=== PATIENT | female | born 1985 | race Caucasian/White ===

== ENCOUNTER 2017-04-02 12:03 | Emergency (ER) | payer OTHER ==
[2017-04-02 13:19] VITALS: BP 117/74
--- NOTE | 2017-04-02 13:19 | UC ---
[facility] HPI - HPI Summary HPI Summary: 31 y/o female presents to the urgent care c/o a infected molar in her LF upper jaw that has become very painful with pus for the past 2 days. Pain is 5/10 today. But yesterday it was worse. she has been using OTC medication that numbs her molars. Pt states she was at the Dentist 2 months ago , but she had to stopped treatment since her insurance didn't cover for it. Pt denies fever, SOB , chest pian, PINEDA, trismus, N/V/D, abdominal pain. - History of Current Complaint Hx Obtained From: Patient Hx Last Menstrual Period: 02/17/16 ?: No Onset/Duration: Gradual Onset, Lasting Days, Still Present, Worse Since - 2 days Severity: Moderate Pain Intensity: 5 Pain Scale Used: 0-10 Numeric Aggravating Factor(s): Cold, Chewing Alleviating Factor(s): OTC Meds <Fatou Sheets - Last Filed: 04/03/17 22:39> <Shawnee Echeverria - Last Filed: 04/05/17 20:24> - History of Current Complaint Stated Complaint: DENTAL Time Seen by Provider: 04/02/17 13:01 - Allergies/Home Medications Allergies/Adverse Reactions: Allergies Allergy/AdvReac Type Severity Reaction Status Date / Time No Known Allergies Allergy Verified 04/02/17 13:19 PMH/Surg Hx/FS Hx/Imm Hx Previously Healthy: Yes - Pt denies PMHX - Surgical History Surgical History: Yes Surgery Procedure, Year, and Place: T&A, - Family History Known Family History: Positive: Hypertension, Diabetes - Social History Occupation: Employed Full-time Lives: With Family Alcohol Use: None Substance Use Type: Heroin, Prescribed, Other Substance Use Comment - Amount & Last Used: suboxone Smoking Status (MU): Heavy Every Day Tobacco Smoker Type: Cigarettes Amount Used/How Often: 1 PPD Length of Time of Smoking/Using Tobacco: 12 Years Have You Smoked in the Last Year: Yes <Fatou Sheets - Last Filed: 04/03/17 22:39> Review of Systems Constitutional: Negative Skin: Negative Eyes: Negative ENT: Other - Dental pain specially on the LF upper jaw Respiratory: Negative Cardiovascular: Negative Gastrointestinal: Negative Genitourinary: Negative Motor: Negative Neurovascular: Negative Musculoskeletal: Negative Neurological: Negative Psychological: Negative Is Patient Immunocompromised?: No All Other Systems Reviewed And Are Negative: Yes <Fatou Sheets - Last Filed: 04/03/17 22:39> Physical Exam Triage Information Reviewed: Yes Appearance: Well-Appearing, No Pain Distress, Well-Nourished Vital Signs Reviewed: Yes Eye Exam: Normal Eyes: Positive: Conjunctiva Clear - PERRLA, EOMI ENT Exam: Normal ENT: Positive: Normal ENT inspection, Hearing grossly normal, Pharynx normal, TMs normal. Negative: Pharyngeal erythema, Tonsillar swelling, Tonsillar exudate, Trismus, Muffled/hoarse voice Dental: Positive: Percussion Tenderness @, Gross Decay/Caries @ - molars 17,18, 14,15,16, 32,33 with gross decay fractures and tender to percusion, sorrounding cellulitis with yellowish discahrge at LF upper jaw molars 14,15., Dental Fracture @, Cervical Lymphadenopathy - B/L tenderness and enlarged Neck: Positive: Supple Respiratory Exam: Normal Respiratory: Positive: Chest non-tender, Lungs clear, Normal breath sounds, No respiratory distress Cardiovascular Exam: Normal Cardiovascular: Positive: RRR, No Murmur, Pulses Normal, Brisk Capillary Refill Abdominal Exam: Normal Abdomen Description: Positive: Nontender, No Organomegaly, Soft. Negative: CVA Tenderness (R), CVA Tenderness (L) Bowel Sounds: Positive: Present Musculoskeletal Exam: Normal Musculoskeletal: Positive: Strength Intact, ROM Intact, No Edema Neurological Exam: Normal Neurological: Positive: Alert Psychological Exam: Normal Skin Exam: Normal <Fatou Sheets - Last Filed: 04/03/17 22:39> Vital Signs: Initial Vital Signs Temp 99.1 F 04/02/17 13:12 Pulse 79 04/02/17 13:12 Resp 18 04/02/17 13:12 BP 117/74 04/02/17 13:12 <Shawnee Echeverria - Last Filed: 04/05/17 20:24> Dental Complaint Course/Dx - Course Course Of Treatment: 31 y/o female presents to the urgent care c/o a infected molar in her LF upper jaw that has become very painful with pus for the past 2 days. Pain is 5/10 today. But yesterday it was worse. she has been using OTC medication that numbs her molars. Pt states she was at the Dentist 2 months ago , but she had to stopped treatment since her insurance didn't cover for it. Pt denies fever, SOB, chest pian, PINEDA, trismus, N/V/D, abdominal pain.Hx obtained. On examiantion Pt with molars 17,18, 14,15,16, 32,33 with gross decay, fractured and tender to percusion, sorrounding cellulitis with yellowish discharge at LF upper jaw molars 14,15. Pt Rx Amoxicillin PO advised to take a loading dose of 1g today and then 500mg PO q8hrs. Also RX Naproxen PO to allevaite pain. Pt given a list of multiple Dentist near the area. Strongly advised to f/u with the Dentist as soon as possible. Pt understood and agreed with D/C instructions and left the clinic ambulating. - Differential Dx/Diagnosis Differential Diagnosis/Dx: Dental Abscess, Dental Caries, Peridontic Disease, Peritonsillar Abcess, Pharyngitis, Tonsillitis Provider Diagnoses: 1- Dental cellulitis. 2- Mutiple molar with gross decay and fractured <Fatou Sheets - Last Filed: 04/03/17 22:39> Discharge <Fatou Sheets - Last Filed: 04/03/17 22:39> <Shawnee Echeverria - Last Filed: 04/05/17 20:24> - Discharge Plan Condition: Stable Disposition: HOME Prescriptions: Amoxicillin PO (*) [Amoxicillin 500 MG CAP*] 500 mg PO TID #30 cap Naproxen TAB* [Naprosyn 250 mg TAB*] 500 mg PO Q8H PRN #30 tab PRN Reason: Pain Patient Education Materials: Dental Abscess (ED) Referrals: Non Staff,Doctor [Medical Doctor] - [facility] [Outside] Additional Instructions: 1-Please take full course of antibiotic to avoid resistance. 2- Take Naproxen as instructed after meals to alleviate pain and swelling. 3- F/u with your Dentist as soon as possible for further treatment or choose a dentist from the list provided 4- If symptoms do not improve or worsen please return to the urgent care or f/u with your PCP for further evaluation and treatment Attestation Statement User Type: Provider - I was available for consult. This patient was seen by the [facility]. The patient was not presented to, seen by, or examined by me. -Vivi <Shawnee Echeverria - Last Filed: 04/05/17 20:24>
== END 2017-04-02 13:27 | disposition home or self-care (01) ==
LOC: UCCORT 12:03
DX: K12.2 Cellulitis and abscess of mouth (principal); K02.9 Dental caries, unspecified; K03.81 Cracked tooth; F17.210 Nicotine dependence, cigarettes, uncomplicated
CPT/HCPCS: 99212; G0463